=== PATIENT | male | born 1940 | race Caucasian/White ===

== ENCOUNTER 2017-07-13 09:57 | Day surgery (SDC) | payer MEDICARE ==
[2017-07-10 11:23] VITALS: BMI 27.1
[2017-07-13] MEDS ORDERED: Lidocaine 1% w/Epinephrine 1:100K 30 ML VIAL ONE (12:47)
--- NOTE | 2017-07-13 13:19 | OP ---
DATE OF PROCEDURE: 07/13/2017 LOOP RECORDER EXTRACTION REMOVAL REASON FOR PROCEDURE: Mr. Millan is a 77-year-old man who has history of paroxysmal atrial fibrill ation. A LINQ recorder which was used for monitoring his atrial arrhythmias. He has been maintainin g sinus rhythm. recently. His LINQ recorder has reached elective replacement indicator. Hence, no f urther definite need for monitoring the arrhythmias. We will plan to remove the LINQ device. PROCEDURE: The patient received lidocaine subcutaneous at insertion site. Incision was made over th e device and was extracted with simple traction. Dermabond was used to cover the entrance wound and Steri-Strips were applied. PLAN: Routine followup.
== END 2017-07-13 13:55 | disposition home or self-care (01) ==
LOC: CCL 09:57
PROVIDERS: ATTEND Internal Medicine Cardiovascular Disease
PROC: 0JPT32Z Removal of Monitoring Device from Trunk Subcutaneous Tissue and Fascia, Percutaneous Approach (ICD-10-PCS; principal; 2017-07-13)
DX: Z45.09 Encounter for adjustment and management of other cardiac device (principal); I48.0 Paroxysmal atrial fibrillation; Z79.01 Long term (current) use of anticoagulants; Z79.82 Long term (current) use of aspirin; Z79.899 Other long term (current) drug therapy; Z98.890 Other specified postprocedural states
CPT/HCPCS: 33284; 93005; 93010; J2001

== ENCOUNTER 2021-08-15 10:19 | Observation (INO) | payer MEDICARE ==
[2021-08-15 11:20] LABS: #Basophils 0.1 thou/uL (0.0-0.2); #Eosinphils 0.2 thou/uL (0.0-0.7); #Lymphocytes 1.6 thou/uL (1.20-3.40); #Monocytes 0.6 thou/uL (0.11-0.59); #Neutrophils 5.9 thou/uL (1.40-6.50); %Basophils 0.9 % (0.0-1.0); %Eosinophils 1.9 % (0.0-10.0); %Lymphocytes 19.3 % (21.0-51.0); %Monocytes 7.6 % (0.0-10.0); %Neutrophils 70.2 % (42.0-75.0); Mean Corpuscular HGB CONC 32.7 g/dL (32.0-36.0); Mean Corpuscular Hemoglobin 32.2 pg (27.0-31.0); Mean Corpuscular Volume 98.5 fL (78.0-98.0); Mean Platelet Volume 8.4 fL (7.4-10.4); Platelet Count 194 thou/uL (130-400); RBC Distribution Width 12.6 % (11.5-14.5); Red Blood Cell (RBC) Count 4.96 mill/uL (4.70-6.10); White Blood Cell (WBC) Count 8.4 thou/uL (4.8-10.8)
[2021-08-15 11:41] LABS: ALT (SGPT) 42 U/L (8-55); AST (SGOT) 38 U/L (5-34); Albumin 3.9 g/dL (3.4-4.8); Alkaline Phosphatase 83 U/L (40-110); Anion Gap 12 mmol/L (10-20); BUN (Urea Nitrogen) 22 mg/dL (8.4-25.7); Bilirubin, Total 0.7 mg/dL (0.2-1.2); Calc. Creatinine Clearance 0 mL/min (70-130); Calcium 9.2 mg/dL (7.8-10.44); Carbon Dioxide 28 mmol/L (23-31); Chloride 105 mmol/L (98-107); Globulin 3.1 g/dL (2.4-3.5); Glucose 152 mg/dL (83-110); Potassium 3.9 mmol/L (3.5-5.1); Sodium 141 mmol/L (136-145)
[2021-08-15] MEDS ORDERED: Senokot S 8.6-50 MG TAB PO PRN (14:12)
[2021-08-15] MEDS ORDERED: Ondansetron PF 4 MG/2 ML Vial IVP PRN (14:12)
[2021-08-15] MEDS ORDERED: Acetaminophen 650 MG Suppository PR PRN (14:12)
[2021-08-15] MEDS ORDERED: hydrALAZINE 20 MG/ML VIAL SLOW IVP PRN (14:12)
[2021-08-15] MEDS ORDERED: Ondansetron ODT 4 MG TAB PO PRN (14:12)
[2021-08-15] MEDS ORDERED: Labetalol HCl 100 MG/20 ML VIAL SLOW IVP PRN (14:12)
[2021-08-15] MEDS ORDERED: Acetaminophen 325 MG TAB PO PRN (14:12)
[2021-08-15 15:25] LABS: SARS-CoV-2 NAA Rapid Test Not Detected (NotDetected)
[2021-08-15 20:00] VITALS: BMI 25.2
[2021-08-15] MEDS: Famotidine 20 MG TAB PO SCH (20:58)
[2021-08-15] MEDS: Apixaban 5 MG TAB PO SCH (20:58)
[2021-08-15] MEDS ORDERED: Rosuvastatin 20 MG TAB PO SCH (21:00)
[2021-08-16 04:29] LABS: #Basophils 0.1 thou/uL (0.0-0.2); #Eosinphils 0.4 thou/uL (0.0-0.7); #Lymphocytes 2.6 thou/uL (1.20-3.40); #Monocytes 0.9 thou/uL (0.11-0.59); #Neutrophils 5.4 thou/uL (1.40-6.50); %Basophils 0.9 % (0.0-1.0); %Eosinophils 4.5 % (0.0-10.0); %Monocytes 9.1 % (0.0-10.0); %Neutrophils 57.5 % (42.0-75.0); Hemoglobin 15.7 g/dL (14.0-18.0); Mean Corpuscular HGB CONC 33.4 g/dL (32.0-36.0); Mean Corpuscular Hemoglobin 32.8 pg (27.0-31.0); Mean Corpuscular Volume 98.1 fL (78.0-98.0); Mean Platelet Volume 8.6 fL (7.4-10.4); Platelet Count 179 thou/uL (130-400); RBC Distribution Width 12.4 % (11.5-14.5); White Blood Cell (WBC) Count 9.3 thou/uL (4.8-10.8)
[2021-08-16 04:47] LABS: Anion Gap 11 mmol/L (10-20); BUN (Urea Nitrogen) 19 mg/dL (8.4-25.7); Calc. Creatinine Clearance 65 mL/min (70-130); Calcium 8.9 mg/dL (7.8-10.44); Carbon Dioxide 25 mmol/L (23-31); Cardiac Risk 3.5 (Less than 4.5); Chloride 109 mmol/L (98-107); Cholesterol 116 mg/dl (< 200 Desired); Glucose 116 mg/dL (83-110); HDL Cholesterol 33 mg/dL (>60 Neg Risk); LDL Cholesterol, Calculated 66 mg/dL; Potassium 3.3 mmol/L (3.5-5.1); Sodium 142 mmol/L (136-145); Triglycerides 85 mg/dL (Less than 150)
[2021-08-16] MEDS: Apixaban 5 MG TAB PO SCH (08:40)
[2021-08-16] MEDS: Famotidine 20 MG TAB PO SCH (08:41)
[2021-08-16] MEDS ORDERED: Hydrochlorothiazide 25 MG TAB PO SCH (09:00)
[2021-08-16] MEDS ORDERED: HYDROCHLOROTHIAZIDE PO SCH (09:00)
[2021-08-16] MEDS ORDERED: Aspirin 325 MG TAB PO SCH (09:00)
[2021-08-16] MEDS ORDERED: Losartan 25 MG TAB PO SCH (09:00)
[2021-08-16] MEDS ORDERED: [UNRECOGNIZED DRUG - OTHER] PO SCH (09:00)
[2021-08-16] MEDS ORDERED: TELMISARTAN PO SCH (09:00)
[2021-08-16] MEDS ORDERED: Magnevist 469MG/ML 20 ML VIAL ONE (10:26)
[2021-08-16] MEDS ORDERED: Metoprolol Tartrate 25 MG TAB PO SCH ×2 (11:00→21:00)
[2021-08-16 12:22] VITALS: TEMP 98.2
[2021-08-16] MEDS ORDERED: Potassium Chloride 20 MEQ TAB PO SCH (17:00)
[2021-08-16 19:38] VITALS: BP 176/95
== END 2021-08-16 19:36 | disposition home or self-care (01) ==
LOC: ERS 10:19 → ERHOLD 12:44 → 2SW 19:27
PROVIDERS: ADMIT Emergency Medicine; ATTEND Internal Medicine
DX: I63.9 Cerebral infarction, unspecified (principal); D49.6 Neoplasm of unspecified behavior of brain; I16.0 Hypertensive urgency; I10 Essential (primary) hypertension; E87.6 Hypokalemia; I48.0 Paroxysmal atrial fibrillation; Z86.73 Personal history of transient ischemic attack (TIA), and cerebral infarction without residual deficits; Z87.891 Personal history of nicotine dependence; Z79.01 Long term (current) use of anticoagulants; Z79.82 Long term (current) use of aspirin; Z79.899 Other long term (current) drug therapy; Z20.822 Contact with and (suspected) exposure to COVID-19
CPT/HCPCS: 70450; 70551; 70552; 80048; 80053; 80061; 84484; 85025 ×2; 93005; 93880; 97139 ×4; 99285; U0002; 36415; A9579; G0378

== ENCOUNTER 2021-10-24 09:38 | Outpatient (CLI) | payer MEDICARE | END 2021-10-24 09:39 | disposition home or self-care (01) | LOC: LABBT 09:38 | PROVIDERS: ATTEND Internal Medicine Cardiovascular Disease | DX: Z01.810 Encounter for preprocedural cardiovascular examination (principal); I48.0 Paroxysmal atrial fibrillation; Z98.890 Other specified postprocedural states; Z86.79 Personal history of other diseases of the circulatory system | CPT/HCPCS: 93005; 93010 ==

== ENCOUNTER 2021-10-24 11:00 | Inpatient (IN) | payer MEDICARE ==
[2021-10-23 13:52] VITALS: BMI 25.8
[2021-10-24 10:52] LABS: Bilirubin Neg (Negative); Blood, Urine Negative (Negative); Clarity Clear (Clear); Glucose, Urine (Dipstick) Normal (Negative); Ketone, Urine Negative (Negative); Leukocyte 25 (Negative); Nitrite Negative (Negative); Protein, Urine (Dipstick) Negative (Neg-Trace); Urobilinogen Normal mg/dL (Less than 2)
[2021-10-24 11:10] LABS: ALT (SGPT) 40 U/L (8-55); AST (SGOT) 37 U/L (5-34); Albumin 4.2 g/dL (3.4-4.8); Alkaline Phosphatase 86 U/L (40-110); Anion Gap 13 mmol/L (10-20); BUN (Urea Nitrogen) 19 mg/dL (8.4-25.7); Bilirubin, Total 0.8 mg/dL (0.2-1.2); Calc. Creatinine Clearance 0 mL/min (70-130); Calcium 9.6 mg/dL (7.8-10.44); Carbon Dioxide 29 mmol/L (23-31); Chloride 103 mmol/L (98-107); Globulin 2.9 g/dL (2.4-3.5); Glucose 110 mg/dL (83-110); Potassium 4.2 mmol/L (3.5-5.1); Protein, Total 7.1 g/dL (5.8-8.1); Sodium 141 mmol/L (136-145)
[2021-10-24 11:11] LABS: Hemoglobin 16.5 g/dL (13.5-17.5); Mean Corpuscular HGB CONC 33.9 g/dL (32.0-36.0); Mean Corpuscular Hemoglobin 30.7 pg (27.0-33.0); Mean Corpuscular Volume 90.7 fl (81.2-95.1); Mean Platelet Volume 11.3 fl (7.4-10.4); Platelet Count 213 10x3/uL (150-450); RBC Distribution Width 13.8 % (11.5-14.5); Red Blood Cell (RBC) Count 5.37 10x6/uL (4.32-5.72); White Blood Cell (WBC) Count 9.2 10x3/uL (3.5-10.5)
[2021-10-24 11:12] LABS: INR-International Normal Ratio 1.1; PTT 32.2 sec (22.0-33.0); Prothrombin Time 11.6 sec (9.5-12.1)
[2021-10-28] MEDS ORDERED: Iopamidol 370 76% 100 ML VIAL ONE (08:00)
[2021-10-28] MEDS ORDERED: Protamine Sulfate 50 MG/5 ML VIAL ONE (12:33)
[2021-10-28] MEDS ORDERED: CEFAZOLIN 1 GM VIAL ONE (12:33)
[2021-10-28] MEDS ORDERED: Heparin 10,000 UNITS/ 10 ML VIAL ONE (12:33)
[2021-10-28] MEDS ORDERED: SUGAMMADEX SODIUM 200 MG/2 ML VIAL ONE (13:12)
[2021-10-28] MEDS ORDERED: fentaNYL Citrate/PF 100 MCG/2 ML SYRINGE ONE (13:12)
[2021-10-28] MEDS ORDERED: Famotidine/PF 20 mg/2ml Vial ONE (13:13)
== END 2021-10-28 17:45 | disposition home or self-care (01) | DRG 274 ==
LOC: SURG A 10-28 09:54
PROVIDERS: ADMIT Internal Medicine Cardiovascular Disease; ATTEND Internal Medicine Cardiovascular Disease
PROC: 02L73DK Occlusion of Left Atrial Appendage with Intraluminal Device, Percutaneous Approach (ICD-10-PCS; principal; 2021-10-28)
PROC: B24BZZ4 Ultrasonography of Heart with Aorta, Transesophageal (ICD-10-PCS; 2021-10-28)
DX: I48.0 Paroxysmal atrial fibrillation (principal); Z00.6 Encounter for examination for normal comparison and control in clinical research program; Z20.822 Contact with and (suspected) exposure to COVID-19; Z86.73 Personal history of transient ischemic attack (TIA), and cerebral infarction without residual deficits; I08.1 Rheumatic disorders of both mitral and tricuspid valves
CPT/HCPCS: 33340; 80053; 81003; 85027; 85347; 85610; 85730; 86850; 86900; 86901; 93306; 93312; C1759; C1760; J0690; J1644; J2720; Q9967; S0028; U0003; U0005

== ENCOUNTER 2021-11-26 08:08 | Outpatient (CLI) | payer MEDICARE ==
[2021-11-26] MEDS ORDERED: Magnevist 469MG/ML 20 ML VIAL ONE (12:00)
== END 2021-11-26 08:09 | disposition home or self-care (01) ==
LOC: TBSIIMAG 08:08
PROVIDERS: ATTEND Surgery
DX: D49.6 Neoplasm of unspecified behavior of brain (principal); I67.82 Cerebral ischemia
CPT/HCPCS: 70553; A9579

== ENCOUNTER 2021-12-06 09:15 | Outpatient (CLI) | payer MEDICARE ==
[2021-12-06 11:12] LABS: Hemoglobin 15.8 g/dL (13.5-17.5); Mean Corpuscular HGB CONC 34.1 g/dL (32.0-36.0); Mean Corpuscular Hemoglobin 31.1 pg (27.0-33.0); Mean Corpuscular Volume 91.3 fl (81.2-95.1); Mean Platelet Volume 11.9 fl (7.4-10.4); Platelet Count 173 10x3/uL (150-450); RBC Distribution Width 13.8 % (11.5-14.5); Red Blood Cell (RBC) Count 5.08 10x6/uL (4.32-5.72); White Blood Cell (WBC) Count 8.9 10x3/uL (3.5-10.5)
[2021-12-06 11:37] LABS: Anion Gap 14 mmol/L (10-20); BUN (Urea Nitrogen) 20 mg/dL (8.4-25.7); Calc. Creatinine Clearance 0 mL/min (70-130); Calcium 9.4 mg/dL (7.8-10.44); Carbon Dioxide 29 mmol/L (23-31); Chloride 103 mmol/L (98-107); Estimated GFR 59; Glucose 102 mg/dL (83-110); Potassium 3.8 mmol/L (3.5-5.1); Sodium 142 mmol/L (136-145)
== END 2021-12-06 09:16 | disposition home or self-care (01) ==
LOC: LABBT 09:15
PROVIDERS: ATTEND Internal Medicine Cardiovascular Disease
DX: Z01.812 Encounter for preprocedural laboratory examination (principal); I48.0 Paroxysmal atrial fibrillation; Z20.822 Contact with and (suspected) exposure to COVID-19
CPT/HCPCS: 80048; 85027; 87811

== ENCOUNTER 2021-12-11 07:50 | Day surgery (SDC) | payer MEDICARE ==
[2021-12-09 14:17] VITALS: BMI 26.5
[~2021-12-11 07:50] MED LIST: PROPOFOL 200 MG/20 ML VIAL ONE
== END 2021-12-11 09:02 | disposition home or self-care (01) ==
LOC: SDC 07:50
PROVIDERS: ATTEND Internal Medicine Cardiovascular Disease
PROC: B246ZZ4 Ultrasonography of Right and Left Heart, Transesophageal (ICD-10-PCS; principal; 2021-12-11)
DX: I48.0 Paroxysmal atrial fibrillation (principal); I11.9 Hypertensive heart disease without heart failure; I08.1 Rheumatic disorders of both mitral and tricuspid valves; I70.0 Atherosclerosis of aorta; Z86.73 Personal history of transient ischemic attack (TIA), and cerebral infarction without residual deficits; Z87.891 Personal history of nicotine dependence; Z79.82 Long term (current) use of aspirin; Z79.899 Other long term (current) drug therapy; Z95.818 Presence of other cardiac implants and grafts
CPT/HCPCS: 93312; J2704